=== PATIENT | male | born 1945 | race Caucasian/White ===

== ENCOUNTER → 2024-01-09 14:20 | Outpatient (REF) | payer MEDICARE, BC, SELFPAY | LOC: HWRAD 14:20 | PROVIDERS: ATTENDING PHYSICIAN Family Medicine | DX: M25.551 Pain in right hip (principal) | CPT/HCPCS: 73502 ==

== ENCOUNTER 2024-12-21 14:52 | Emergency (ER) | payer BC, SELFPAY ==
[2024-12-21 15:00] VITALS: BP 105/90
[2024-12-21 15:18] LABS: % Basophils 0.6 % (0-2); % Eosinophils 1.1 % (0-6); % Immature Granulocytes 0.4 % (0-0.5); % Lymphocytes 15.2 % (20.5-51.1); % Monocytes 6.4 % (1.7-9.3); % Neutrophils 76.3 % (42.2-75.2); Absolute Basophils 0.1 10^3/uL (0-0.2); Absolute Eosinophils 0.1 10^3/uL (0-0.7); Absolute Lymphocytes 1.7 10^3/uL (1.2-3.4); Absolute Monocytes 0.7 10^3/uL (0.1-0.6); Absolute Neutrophils 8.3 10^3/uL (1.4-6.5); Hematocrit 45.1 % (39.0-52.0); Hemoglobin 15.5 g/dL (13.0-18.0); Mean Corp Hgb Conc. 34.4 g/dL (33.0-37.0); Mean Corpuscular Hgb 30.4 pg (27.0-31.0); Mean Corpuscular Volume 88.4 fL (80.0-94.0); Mean Platelet Volume 9.8 fL (7.4-10.4); Nucleated Red Blood Cells % 0 % (-); Platelet Count 278 10^3/uL (130-400); Red Cell Dist. Width 14.2 % (11.5-14.5); White Blood Cell Count 10.9 10^3/uL (4.8-10.8)
[2024-12-21 15:36] LABS: ALT (SGPT) 28 U/L (0-50); AST (SGOT) 35 U/L (17-59); Albumin 4.8 g/dl (3.5-5.0); Alkaline Phosphatase 79 U/L (38-126); Blood Urea Nitrogen 16 mg/dl (9-20); Calcium 9.4 mg/dl (8.4-10.2); Carbon Dioxide 23 mmol/L (22-30); Chloride 106 mmol/L (98-107); Glucose 114 mg/dl (70-99); Potassium 4.2 mmol/L (3.5-5.1); Sodium 142 mmol/L (135-145); Total Bilirubin 1.1 mg/dl (0.2-1.3); Total Protein 7.9 g/dl (6.3-8.2); eGFR > 60.00
[2024-12-21 18:18] VITALS: BP 162/106
--- NOTE | 2024-12-21 19:22 | ED.GENMED ---
History of Present Illness
General
Chief Complaint: Rectal Bleeding
Source: patient
Exam Limitations: none
Time Seen by Provider: 12/21/24 18:13
Nursing documentation reviewed up to this point in time: agreed with
History of Present Illness
History of Present Illness:
Patient is an 79-year-old male who presents to the ER for episode of bright red rectal bleeding that started this morning around 10 AM after bowel movement. He does report he has a history of internal hemorrhoids. He reports his stool was brown in
color. He denies any abdominal pain nausea vomiting. He has not on anticoagulation.
He denies any lightheadedness. He had several episodes of rectal bleeding at home however this has since resolved.
Past History
Past History
ED Past Medical History: Hypercholesterolemia
ED Past Surgical History: None
Social History
Tobacco: Former smoker
Personal:
Living: with family
Family History
Family History: CAD
Review of Systems
Review of Systems
Allergies reviewed?: Yes
All Other Systems: ROS reviewed and negative except as documented in HPI and ROS
Constitutional: Reports no symptoms
ABD/GI: Reports other (Bright red rectal blood; normal brown stool color); Denies abdominal pain, nausea, vomiting or diarrhea
: Reports no symptoms
Musculoskeletal: Reports no symptoms
Skin: Reports no symptoms
Neurological: Reports no symptoms; Denies dizzy
Psychiatric: Reports no symptoms
Phy Exam
General Physical Exam
General Presentation: no apparent distress
General age: appears stated age
General Skin: warm and dry
General Habitus: normal
General Mental: alert
General Hydration: appears well hydrated
Cardiovascular Exam
Cardiovascular Exam: regular rate/rhythm, no murmur and normal peripheral pulses
Pulmonary Exam
Pulmonary Exam: lungs clear and no respiratory distress
Gastrointestinal Exam
Gastrointestinal Exam: normal bowel sounds, non tender, soft and other ( rectal exam: no external hemorrhoids questionable internal hemorrhoids palpated on exam no stool in rectum no rectal bleeding)
Neurological Exam
Neurological Exam: alert, oriented x3 and no motor deficits
Musculoskeletal Exam
Musculoskeletal Exam: full ROM
Skin Exam
Skin Exam: normal color and warm/dry
Psychiatric Exam
Psychiatric Exam: normal mood/affect
Course
Orders/Labs/Results
Orders:
Orders
12/21/24 15:08
Complete Blood Count/With Diff Urgent
Comprehensive Metabolic Panel Urgent
12/21/24 19:42
Vital Signs- Treatment ONCE
Frequency: Once
Abnormal Lab Results
12/21/24
15:08
WBC 10.9 H 10^3/uL
(4.8-10.8)
Absolute Neuts (auto) 8.3 H 10^3/uL
(1.4-6.5)
Absolute Monos (auto) 0.7 H 10^3/uL
(0.1-0.6)
Neutrophils % 76.3 H %
(42.2-75.2)
Lymphocytes % 15.2 L %
(20.5-51.1)
Glucose 114 H mg/dl
(70-99)
12/21/24 15:08
12/21/24 15:08
Vital Signs
Initial and Last Documented VS:
Initial Vital Signs
Temp Pulse Resp BP Pulse Ox
98.4 F 98 18 105/90 94
12/21/24 15:00 12/21/24 15:00 12/21/24 15:00 12/21/24 15:00 12/21/24 15:00
Last Documented Vital Signs
Temp Pulse Resp BP Pulse Ox
98.4 F 89 18 149/68 98
12/21/24 15:00 12/21/24 19:49 12/21/24 19:49 12/21/24 19:49 12/21/24 19:49
MDM/Problems Addressed
Differential Diagnosis Includes:
Not limited to GI bleed, hemorrhoids
MDM/Problems Addressed:
Patient is an 79-year-old male who complains of bright red rectal bleeding. He does report the stool was brown in color no associate abdominal pain or dizziness. Patient is not on anticoagulation. On exam he is in no acute distress well-appearing
abdomen soft nontender no stool in rectal no obvious external hemorrhoids however internal hemorrhoids palpated no bleeding or stool in rectum. Patient is in no acute distress nontachycardic stable vital signs hemoglobin stable likely internal
hemorrhoids which cause the bright red rectal bleeding. Will DC with Anusol close outpatient follow-up with colorectal surgery
*Pulse Oximetry
Patient hypoxic: no
*Critical Care Note
Total Time (30-74mins, 75-104mins- exclusive of procedures): Not Applicable
ED Attending Note
-
Portions of this chart may have been created with voice recognition software.� Occasional wrong word or��sound alike� substitutions may have occurred due to the inherent limitations of voice recognition software.
Discharge Plan
Departure
Patient Disposition: Home (Routine Discharge)
Date of Disposition: 12/21/24
Time of Disposition: 19:42
Patient with high blood pressure during this ER visit?: Yes
Covid-19: Not Applicable
Discharge Problem:
Bright red rectal bleeding
Instructions: Hemorrhoids (DC), BLOOD PRESSURE
Prescriptions:
New
hydrocortisone acetate [Anusol-HC] 25 mg suppository
25 mg MD BID Qty: 12 0RF
No Action
aspirin [Gerry Chewable Aspirin] 81 MG tablet,chewable
81 mg PO DAILY
rosuvastatin 20 MG tablet
PO QPM
Patient Comments:
pt not sure dosage
multivitamin [Daily Vitamin] 1 EACH tablet
1 ea PO DAILY
oxycodone-acetaminophen 5 MG/325 MG tablet
1 - 2 tab PO Q6HPRN PRN (Reason: moderate - severe pain) Qty: 30 0RF
Referrals:
Mike Lynn DO [Family Provider] -
Activity Restrictions/Additional Instructions:
As discussed please take [id number] Colace to soften your stool. A prescription for Anusol suppository was sent to your pharmacy take as directed. Follow-up with family doctor next several days and colorectal surgery as needed. Return for
any worsening of symptoms.
Interventions
Interventions:
*Risk Screen - Suicide Last Done: 12/21/24 15:00
*General Assessment Last Done: 12/21/24 15:00
*Neglect/Abuse Screening Last Done: 12/21/24 15:00
*Nursing Disposition Last Done: 12/21/24 19:52
EK-Wmsqtu-Yshkkpbenf Assessment Last Done: 12/21/24 18:50
ED- Cardiac Assessment Last Done: 12/21/24 18:50
ED- Pulmonary Assessment Last Done: 12/21/24 18:50
Discharge Date and Time
Discharge Date/Time: 12/21/24 19:52
Print Language: MALAGASY
[2024-12-21 19:49] VITALS: BP 149/68
== END 2024-12-21 19:52 | disposition home or self-care (01) ==
LOC: EMR 14:52
PROVIDERS: EMERGENCY PHYSICIAN Student in an Organized Health Care Education/Training Program; FAMILY PHYSICIAN Family Medicine
DX: K62.5 Hemorrhage of anus and rectum (principal); E78.00 Pure hypercholesterolemia, unspecified; Z82.49 Family history of ischemic heart disease and other diseases of the circulatory system; Z87.19 Personal history of other diseases of the digestive system; Z87.891 Personal history of nicotine dependence
CPT/HCPCS: 99283; 80053; 85025

== ENCOUNTER → 2025-06-26 14:36 | Outpatient (REF) | payer MEDICARE, SELFPAY | LOC: PAVMRI 14:36 | PROVIDERS: ATTENDING PHYSICIAN Orthopaedic Surgery | DX: M25.559 Pain in unspecified hip (principal); M25.551 Pain in right hip | CPT/HCPCS: 73721 ==